=== PATIENT | female | born 1950 | race Caucasian/White ===

== ENCOUNTER 2018-02-16 16:18 | Emergency (ER) | payer MEDICARE, OTHER ==
[~2018-02-16] VITALS: Ht 172.7 cm; Wt 75.0 kg
[2018-02-16 16:22] VITALS: BP 200/83; PULSE 63; RESP 18; TEMP 97.5; O2SAT 98
--- NOTE | 2018-02-16 17:24 | PD ---
HPI Chief Complaint: Skin Problem Time Seen by Provider: 16:56 Travel History International Travel<30 days: No Contact w/Intl Traveler<30days: No Traveled to known affect area: No History of Present Illness HPI 67-year-old female here with injury to the left great toe 5 days ago. The toe has become increasingly more painful and throbbing. She noticed a small amount of blood coming out of the nail fold which prompted her visit today. Denies fever or chills. Pain is worse with palpation of the toe nail. Symptoms severity is moderate. No alleviating factors. PFSH Past Medical History Cardiovascular Problems: Yes (HTN) Hypertension: Yes Tetanus Vaccination: > 5 Years Influenza Vaccination: No ?: Not Menopausal: Yes Past Surgical History Tonsillectomy: Yes Other Surgery: Yes (R. ROTATOR CUFF, L. ANKLE, BILAT. CARPAL TUNNEL) Social History Alcohol Use: Yes (OCCASIONAL) Tobacco Use: No Substance Use: No Allergies-Medications (Allergen,Severity, Reaction): Coded Allergies: No Known Allergies (Verified Allergy, Unknown, 02/16/18) Review of Systems Except as stated in HPI: all other systems reviewed are Neg General / Constitutional: No: Fever Physical Exam Narrative GENERAL: Alert well-appearing 67-year-old female SKIN: Warm and dry. HEAD: Normocephalic. EYES: No injection or drainage. NECK: Supple MUSCULOSKELETAL: No cyanosis. Left foot: Left great toe subungual hematoma present. No bony tenderness. No deformity. Mild amount of swelling. No warmth or erythema. Dried blood noted at the distal edge of the nail plate. Overall range of motion. Normal sensation. Brisk cap refill. Data Data Last Documented VS Vital Signs Date Time Temp Pulse Resp B/P (MAP) Pulse Ox O2 Delivery O2 Flow Rate FiO2 02/16/18 16:22 97.5 63 18 200/83 (122) 98 Orders Orders Toe (Min 2vws) (02/16/18 ) [facility] Medical Decision Making Medical Screen Exam Complete: Yes Emergency Medical Condition: Yes Differential Diagnosis Subungual hematoma, partial nail avulsion, toe fracture, contusion Narrative Course 67-year-old female here with a contusion injury to left great toe. Digit is neurovascularly intact. Subungual hematoma present. Nail is firmly in place. X-ray again for fracture. Trephination performed with minimal drainage. Removal of the toenail was recommended the patient declined. He agrees to follow up with a balancer scale for recheck this week. She will be started on antibiotics for possible infection. Return precautions were discussed. Patient verbalizes understanding and agrees to plan Procedures Procedure Narrative Trepanation of left great toe subungual hematoma: Area was prepped with Betadine. Electrocautery used to make 1 rosalia hole with minimal drainage. Sterile dressing applied. Diagnosis Primary Impression: Subungual hematoma of great toe of left foot Qualified Codes: S90.212A - Contusion of left great toe with damage to nail, initial encounter Referrals: Karine Dawn [facility] Additional Instructions: Soak the area in warm Epsom salts several times per day. Antibiotics as directed. Follow-up with podiatry. Scripts Cephalexin (Keflex) 500 Mg Capsule 500 MG PO Q6H for Infection for 5 Days, #20 CAP 0 Refills Prov: Luz Maria Hardwick 02/16/18 Luz Maria Hardwick Feb 16, 2018 17:24
--- NOTE | 2018-02-16 17:36 | RADRPT ---
EXAM DATE/TIME: 02/16/2018 17:21 [place] COMPARISON: No previous studies available for comparison. INDICATIONS : Pain in left great toe after stubbing toe 5 days ago. MEDICAL HISTORY : None. SURGICAL HISTORY : None. ENCOUNTER: Initial ACUITY: 4 - 6 days PAIN SCORE: 5/10 LOCATION: Left foot, great toe. FINDINGS: There are degenerative changes in the metatarsal phalangeal joint of the first digit. The bony minera lization is within normal limits. There is some soft tissue swelling involving the distal aspect of t he first digit. No definite bony abnormality is seen. CONCLUSION: No acute fracture of the distal aspect of the first digit identified. There is soft tissue swelling. Degenerative changes in the metatarsal phalangeal joint of the first digit. Ham Kim MD on February 16, 2018 at 17:33 Board Certified Radiologist. This report was verified electronically.
[2018-02-16] MEDS ORDERED: CEPH-460 PO (18:22)
== END 2018-02-16 18:36 | disposition home or self-care (01) ==
LOC: PHED 16:18 → PHEFT 18:36
DX: S90.212A Contusion of left great toe with damage to nail, initial encounter (principal); X58.XXXA Exposure to other specified factors, initial encounter
CPT/HCPCS: 11740; 73660